=== PATIENT | female | born 1980 | race Hispanic/Latino ===

== ENCOUNTER 2017-02-22 14:54 | Emergency (ER) | payer MEDICARE, MEDICAID ==
[2017-02-22 14:58] VITALS: BP 129/75; PULSE 100; TEMP 98.4
[2017-02-22 15:09] VITALS: RESP 18
--- NOTE | 2017-02-22 15:15 | ED PDOC ---
HPI: General Adult Time Seen by Provider: 02/22/17 15:02 Chief Complaint (Nursing): Shortness Of Breath History Per: Patient Additional Complaint(s): Air Pollution Specialist states for the past 2 days pt. has had cough and sore throat which began today. Denies congestion, SOB, chest pain, rash, recent travel. Of note, pt.'s 13 y/o and 6 y/o daughters all have the same symptoms. Past Medical History Reviewed: Historical Data, Nursing Documentation, Vital Signs Vital Signs: Last Vital Signs Temp 98.4 F 02/22/17 14:57 Pulse 100 H 02/22/17 14:57 Resp 18 02/22/17 15:07 BP 129/75 02/22/17 14:57 Pulse Ox 98 02/22/17 15:07 - Medical History PMH: Denies: Chronic Kidney Disease - Surgical History Surgical History: Appendectomy, Cholecystectomy - Family History Family History: States: No Known Family Hx - Home Medications Home Medications: Ambulatory Orders Medication Instructions Recorded Oseltamivir Phosphate [Tamiflu] 75 mg PO BID #10 cap 08/09/14 Famotidine [Pepcid] 20 mg PO BID #20 tab 09/13/15 Ondansetron ODT [Zofran ODT] 4 mg PO Q8H PRN #20 odt 09/13/15 Benzonatate [Tessalon Perle] 100 mg PO Q8 PRN #30 capsule 02/22/17 - Allergies Allergies/Adverse Reactions: Allergies Allergy/AdvReac Type Severity Reaction Status Date / Time Sulfa (Sulfonamide Allergy RASH Verified 09/13/15 20:45 Antibiotics) Review of Systems ROS Statement: Except As Marked, All Systems Reviewed And Found Negative ENT: Positive for: Throat Pain Respiratory: Positive for: Cough Physical Exam - Reviewed Nursing Documentation Reviewed: Yes Vital Signs Reviewed: Yes - Physical Exam Appears: Positive for: Well, Non-toxic, No Acute Distress Head Exam: Positive for: ATRAUMATIC, NORMAL INSPECTION, NORMOCEPHALIC Skin: Positive for: Normal Color, Warm. Negative for: Rash Eye Exam: Positive for: EOMI, Normal appearance, PERRL ENT: Positive for: Normal ENT Inspection, TM Is/Are (non-erythematous, non- bulging b/l), Other (no drooling). Negative for: Pharyngeal Erythema, Tonsillar Exudate, Tonsillar Swelling Neck: Positive for: Normal, Painless ROM Cardiovascular/Chest: Positive for: Regular Rate, Rhythm Respiratory: Positive for: CNT, Normal Breath Sounds Gastrointestinal/Abdominal: Positive for: Normal Exam, Bowel Sounds, Soft. Negative for: Tenderness Back: Positive for: Normal Inspection Extremity: Positive for: Normal ROM Neurologic/Psych: Positive for: Alert, Oriented - ECG O2 Sat by Pulse Oximetry: 98 Disposition - Clinical Impression Clinical Impression: URI (upper respiratory infection) - Patient ED Disposition Is Patient to be Admitted: No - Disposition Disposition: Routine/Home Disposition Time: 15:16 Condition: STABLE Prescriptions: Benzonatate [Tessalon Perle] 100 mg PO Q8 PRN #30 capsule PRN Reason: Cough Instructions: Upper Respiratory Infection (ED) Print Language: SETSWANA
[2017-02-22 15:30] VITALS: O2SAT 99
== END 2017-02-22 15:30 | disposition home or self-care (01) ==
LOC: H.ER 14:54
DX: J06.9 Acute upper respiratory infection, unspecified (principal)

== ENCOUNTER 2018-02-08 10:48 | Emergency (ER) | payer MEDICARE, MEDICAID ==
[2018-02-08 11:00] VITALS: BP 111/74; PULSE 109; TEMP 100.7; O2SAT 98
[2018-02-08 11:01] VITALS: BMI 31.4
[2018-02-08] MEDS ORDERED: Sodium Chloride 0.9% 1,000 ML IV STA (11:31)
[2018-02-08 12:42] LABS: BASO # 0.1 K/uL (0.0-0.2); BASO % 0.8 % (0.0-2.0); EOS % 0.5 % (0.0-4.0); HEMOGLOBIN 12.6 g/dL (12.0-16.0); LYMPH # 0.6 K/uL (1.0-4.3); LYMPH % 7.7 % (20.0-40.0); MEAN CELL VOLUME 92.3 fl (81.0-99.0); MEAN CORPUSCULAR HEMOGLOBIN 30.9 pg (27.0-31.0); MEAN CORPUSCULAR HGB CONC 33.4 g/dL (33.0-37.0); MEAN PLATELET VOLUME 9.9 fl (7.2-11.7); MONO # 0.4 K/uL (0.0-0.8); MONO % 5.7 % (0.0-10.0); NEUT # 6.2 K/uL (1.8-7.0); NEUT % 85.3 % (50.0-75.0); PLATELET COUNT 218 K/uL (130-400); RBC 4.07 Mil/uL (3.80-5.20); RED CELL DISTRIBUTION WIDTH 13.8 % (11.5-14.5); WHITE BLOOD COUNT 7.3 K/uL (4.8-10.8)
[2018-02-08 12:54] LABS: ALB/GLOB RATIO 1.2 (1.0-2.1); ALBUMIN 3.8 g/dL (3.5-5.0); ALT/SGPT 37 U/L (9-52); AST/SGOT 30 U/L (14-36); BLOOD UREA NITROGEN 12 mg/dl (7-17); CALCIUM 8.9 mg/dL (8.4-10.2); GFR AFRICAN-AMERICAN > 60; GFR NON-AFRICAN AMERICAN > 60; LIPASE 72 U/L (23-300)
[2018-02-08 13:13] LABS: BANDS 1 % (0-2); LYMPHOCYTE 8 % (20-50); MONOCYTE 5 % (0-10); NEUTROPHIL 86 % (42-75); PLATELET ESTIMATE NORMAL (NORMAL); TOTAL CELLS COUNTED 100
[2018-02-08 13:14] LABS: ANISOCYTOSIS SLIGHT
--- NOTE | 2018-02-08 14:00 | ED PDOC ---
HPI: General Adult Time Seen by Provider: 02/08/18 11:15 Chief Complaint (Nursing): Flu-like Symptoms History Per: Patient (this is a yo lady who presents to the ER because of diffuse body aches for about 2-3 weeks that is associated with nausea. she has not been seen by her own doctor. ) History/Exam Limitations: no limitations Onset/Duration Of Symptoms: Waxing/Waning Past Medical History Reviewed: Historical Data, Nursing Documentation, Vital Signs Vital Signs: Last Vital Signs Temp 100.7 F H 02/08/18 11:00 Pulse 109 H 02/08/18 11:00 Resp BP 111/74 02/08/18 11:00 Pulse Ox 98 02/08/18 11:00 - Medical History PMH: Gastritis Denies: Chronic Kidney Disease - Surgical History Surgical History: Appendectomy, Cholecystectomy - Family History Family History: States: No Known Family Hx - Living Arrangements Living Arrangements: With Family - Home Medications Home Medications: Ambulatory Orders Medication Instructions Recorded Oseltamivir Phosphate [Tamiflu] 75 mg PO BID #10 cap 08/09/14 Famotidine [Pepcid] 20 mg PO BID #20 tab 09/13/15 Ondansetron ODT [Zofran ODT] 4 mg PO Q8H PRN #20 odt 09/13/15 Benzonatate [Tessalon Perle] 100 mg PO Q8 PRN #30 capsule 02/22/17 Acetaminophen [Tylenol 325mg tab] 650 mg PO Q6H PRN #50 tab 02/08/18 Naproxen [Naprosyn] 500 mg PO BID PRN #20 tablet 02/08/18 - Allergies Allergies/Adverse Reactions: Allergies Allergy/AdvReac Type Severity Reaction Status Date / Time Sulfa (Sulfonamide Allergy RASH Verified 09/13/15 20:45 Antibiotics) Review of Systems ROS Statement: Except As Marked, All Systems Reviewed And Found Negative Constitutional: Positive for: Fever, Weakness Respiratory: Negative for: Cough Gastrointestinal: Negative for: Nausea, Vomiting, Diarrhea Genitourinary Female: Negative for: Dysuria Musculoskeletal: Positive for: Neck Pain, Shoulder Pain, Arm Pain, Back Pain, Hand Pain, Leg Pain, Foot Pain Physical Exam - Reviewed Nursing Documentation Reviewed: Yes Vital Signs Reviewed: Yes - Physical Exam Appears: Positive for: Well, Non-toxic, No Acute Distress Head Exam: Positive for: ATRAUMATIC, NORMAL INSPECTION, NORMOCEPHALIC Skin: Positive for: Normal Color, Warm, DRY Eye Exam: Positive for: Normal appearance ENT: Positive for: Normal ENT Inspection Neck: Positive for: Normal Cardiovascular/Chest: Positive for: Regular Rate, Rhythm Respiratory: Positive for: CNT, Normal Breath Sounds Gastrointestinal/Abdominal: Positive for: Normal Exam, Soft Back: Positive for: Normal Inspection Extremity: Positive for: Normal ROM Neurologic/Psych: Positive for: Alert, Oriented - Laboratory Results Result Diagrams: 02/08/18 12:10 02/08/18 12:10 - ECG O2 Sat by Pulse Oximetry: 98 - Progress Re-evaluation Time: 13:35 Condition: Re-examined, Improved Disposition - Clinical Impression Clinical Impression: Viral illness - Patient ED Disposition Is Patient to be Admitted: No Doctor Will See Patient In The: Office Counseled Patient/Family Regarding: Diagnosis, Need For Followup, Rx Given - Disposition Referrals: Conchis Dueñas MD [Family Provider] - [facility] [Outside] Disposition: Routine/Home Disposition Time: 13:15 Condition: IMPROVED Prescriptions: Acetaminophen [Tylenol 325mg tab] 650 mg PO Q6H PRN #50 tab PRN Reason: Pain, Moderate (4-7) Naproxen [Naprosyn] 500 mg PO BID PRN #20 tablet PRN Reason: Pain, Moderate (4-7) Instructions: Viral Syndrome (DC) Print Language: [place] - POA Present On Arrival: None
== END 2018-02-08 14:27 | disposition home or self-care (01) ==
LOC: H.ER 10:48
DX: B34.9 Viral infection, unspecified (principal)
CPT/HCPCS: 80053; 81025; 83690; 85025; 85651; 87804; 96374; 96375; 99283; J1885; J2405; J7030

== ENCOUNTER 2018-10-29 16:11 | Emergency (ER) | payer MEDICARE, MEDICAID ==
[2018-10-29 16:11] VITALS: BMI 31.4
[2018-10-29 16:16] VITALS: BP 131/76; PULSE 88; RESP 18; TEMP 98.6; O2SAT 97
--- NOTE | 2018-10-29 17:05 | ED PDOC ---
HPI: General Adult Time Seen by Provider: 10/29/18 16:50 Chief Complaint (Nursing): ENT Problem Chief Complaint (Provider): Right Ear Pain History Per: Patient History/Exam Limitations: no limitations Onset/Duration Of Symptoms: Days (x4) Current Symptoms Are (Timing): Still Present Additional Complaint(s): 38 year old female presents to the ED for evaluation of right ear pain radiating to her neck for the past four days associated with some painful swallowing s/p recently having a benign right thyroid cyst biopsy which she was told may cause her some pain. Otherwise, denies fever, chills, body aches, nausea, vomiting, and throat swelling. PMD: Conchis Dueñas Past Medical History Reviewed: Historical Data, Nursing Documentation, Vital Signs Vital Signs: Last Vital Signs Temp 98.6 F 10/29/18 16:15 Pulse 88 10/29/18 16:15 Resp 18 10/29/18 16:15 BP 131/76 10/29/18 16:15 Pulse Ox 97 10/29/18 16:15 - Medical History PMH: Gastritis Denies: Chronic Kidney Disease - Surgical History Surgical History: Appendectomy, Cholecystectomy - Family History Family History: States: Unknown Family Hx - Home Medications Home Medications: Ambulatory Orders Medication Instructions Recorded Oseltamivir Phosphate [Tamiflu] 75 mg PO BID #10 cap 08/09/14 Famotidine [Pepcid] 20 mg PO BID #20 tab 09/13/15 Ondansetron ODT [Zofran ODT] 4 mg PO Q8H PRN #20 odt 09/13/15 Benzonatate [Tessalon Perle] 100 mg PO Q8 PRN #30 capsule 02/22/17 Acetaminophen [Tylenol 325mg tab] 650 mg PO Q6H PRN #50 tab 02/08/18 Naproxen [Naprosyn] 500 mg PO BID PRN #20 tablet 02/08/18 Amoxicillin/Clavulanate [Augmentin 1 tab PO Q12 #14 tab 10/29/18 875 MG-125 MG] - Allergies Allergies/Adverse Reactions: Allergies Allergy/AdvReac Type Severity Reaction Status Date / Time Sulfa (Sulfonamide Allergy RASH Verified 09/13/15 20:45 Antibiotics) Review of Systems ROS Statement: Except As Marked, All Systems Reviewed And Found Negative Constitutional: Negative for: Fever, Chills, Other (body aches) ENT: Positive for: Ear Pain (right, radiating to neck), Other (some pain with swallowing). Negative for: Throat Swelling Gastrointestinal: Negative for: Nausea, Vomiting Physical Exam - Reviewed Nursing Documentation Reviewed: Yes Vital Signs Reviewed: Yes - Physical Exam Appears: Positive for: No Acute Distress Head Exam: Positive for: ATRAUMATIC, NORMOCEPHALIC Skin: Positive for: Normal Color, Warm, Dry. Negative for: Rash Eye Exam: Positive for: Normal appearance ENT: Positive for: TM Is/Are (intact bilaterally; opacity noted behind right TM). Negative for: Pharyngeal Erythema, Tonsillar Swelling (or erythema) Neck: Positive for: Normal, Painless ROM, Supple Cardiovascular/Chest: Positive for: Regular Rate, Rhythm Respiratory: Positive for: Normal Breath Sounds. Negative for: Respiratory Distress Neurological/Psych: Positive for: Awake, Alert, Oriented (x3) - ECG O2 Sat by Pulse Oximetry: 97 (RA) Pulse Ox Interpretation: Normal Medical Decision Making Medical Decision Making: Time: 1707 Initial Impression: otitis media of right ear Initial Plan: --Patient is stable for discharge after dose of Ibuprofen 800mg PO, and will be sent home with script for augmentin x1 week. Return parameters discussed and advised to follow up with ENT if necessary. Patient verbalized understanding and agreement with treatment and plan. Scribe Attestation: Documented by Radha Dominguez, acting as a scribe for Julee Pina NP. Provider Scribe Attestation: All medical record entries made by the Scribe were at my direction and personally dictated by me. I have reviewed the chart and agree that the record accurately reflects my personal performance of the history, physical exam, medical decision making, and the department course for this patient. I have also personally directed, reviewed, and agree with the discharge instructions and disposition. Disposition - Clinical Impression Clinical Impression: Otitis, Right ear pain - Disposition Referrals: Hector Mcdermott MD [Staff Provider] - Disposition Time: 17:15 Condition: GOOD Prescriptions: Amoxicillin/Clavulanate [Augmentin 875 MG-125 MG] 1 tab PO Q12 #14 tab Instructions: Ear Infections (Otitis Media) (DC) Forms: [employer] (Irish)
--- NOTE | 2018-10-29 17:06 | ED PDOC ---
HPI: CCC, URI, Sore Throat Chief Complaint (Nursing): ENT Problem Past Medical History Vital Signs: Last Vital Signs Temp 98.6 F 10/29/18 16:15 Pulse 88 10/29/18 16:15 Resp 18 10/29/18 16:15 BP 131/76 10/29/18 16:15 Pulse Ox 97 10/29/18 16:15 - Medical History PMH: Gastritis Denies: Chronic Kidney Disease - Surgical History Surgical History: Appendectomy, Cholecystectomy - Home Medications Home Medications: Ambulatory Orders Medication Instructions Recorded Oseltamivir Phosphate [Tamiflu] 75 mg PO BID #10 cap 08/09/14 Famotidine [Pepcid] 20 mg PO BID #20 tab 09/13/15 Ondansetron ODT [Zofran ODT] 4 mg PO Q8H PRN #20 odt 09/13/15 Benzonatate [Tessalon Perle] 100 mg PO Q8 PRN #30 capsule 02/22/17 Acetaminophen [Tylenol 325mg tab] 650 mg PO Q6H PRN #50 tab 02/08/18 Naproxen [Naprosyn] 500 mg PO BID PRN #20 tablet 02/08/18 Amoxicillin/Clavulanate [Augmentin 1 tab PO Q12 #14 tab 10/29/18 875 MG-125 MG] - Allergies Allergies/Adverse Reactions: Allergies Allergy/AdvReac Type Severity Reaction Status Date / Time Sulfa (Sulfonamide Allergy RASH Verified 09/13/15 20:45 Antibiotics) - ECG O2 Sat by Pulse Oximetry: 97 Disposition - Clinical Impression Clinical Impression: Otitis, Right ear pain - Patient ED Disposition Is Patient to be Admitted: No Counseled Patient/Family Regarding: Diagnosis, Rx Given - Disposition Referrals: Hector Mcdermott MD [Staff Provider] - Disposition: Routine/Home Disposition Time: 17:00 Condition: GOOD Prescriptions: Amoxicillin/Clavulanate [Augmentin 875 MG-125 MG] 1 tab PO Q12 #14 tab Instructions: Ear Infections (Otitis Media) (DC) Forms: [employer] (Greek) - POA Present On Arrival: None
== END 2018-10-29 17:13 | disposition home or self-care (01) ==
LOC: H.ER 16:11
DX: H66.91 Otitis media, unspecified, right ear (principal); Z88.2 Allergy status to sulfonamides